=== PATIENT | male | born 1995 | race American Indian/Alaskan Native ===

== ENCOUNTER 2017-03-09 12:07 | Emergency (ER) | payer SELFPAY ==
--- NOTE | 2017-03-09 14:55 | Emergency Department Report ---
HPI - General Chief Complaint: Weakness Time Seen by Provider: 03/09/17 14:26 - HPI HPI: This is a 21-year-old male presents to ED complaining of loss of appetite 2 weeks. Patient states he chews like his immune system is a bit weak and wants to be screened. Patient states he only eats about 1 meal a day. Patient also states sometimes he feels like he is losing weight. Patient denies any medical history or surgical history. Patient denies feeling depressed. She did mention that his mother passed in October of this year. States he was doing fine and is coping well and does not think that's why he has a loss of appetite. Patient denies fevers/chills/nausea/vomiting/abdominal pain/chest pain/ diarrhea or constipation/dizziness/headache or blurry vision. ED Past Medical Hx - Past Medical History Previous Medical History?: No - Surgical History Past Surgical History?: No - Social History Smoking Status: Current Every Day Smoker Substance Use Type: Alcohol - Medications Home Medications: Home Medications Medication Instructions Recorded Confirmed Last Taken Type HYDROcodone/APAP 5-325 [[place] 1 each PO Q8HR PRN #20 tablet 01/24/15 Unknown Rx 5/325] Ciprofloxacin HCl [Ciprofloxacin 500 mg PO Q12HR #20 tab 05/20/15 Unknown Rx TAB] Diclofenac Dr [June Andino] 75 mg PO Q12H #20 tablet 05/20/15 Unknown Rx HYDROcodone/APAP 10-325 [[place] 1 each PO Q4-6H PRN #20 tablet 05/20/15 Unknown Rx 10/325] metroNIDAZOLE [Flagyl TAB] 500 mg PO Q8HR #21 tablet 05/20/15 Unknown Rx Naproxen [Naprosyn TAB] 500 mg PO BID PRN #30 tablet 03/09/17 Unknown Rx Pedi Multivit #22/Vit D3/Vit K 1 each PO DAILY #40 tab.chew 03/09/17 Unknown Rx [Multivitamins Chewable Tablet] ED Review of Systems ROS: Stated complaint: CHEST PAINS Other details as noted in HPI Constitutional: denies: chills, fever Eyes: denies: eye pain, eye discharge, vision change ENT: denies: ear pain, throat pain Respiratory: denies: cough, shortness of breath, wheezing Cardiovascular: denies: chest pain, palpitations Endocrine: no symptoms reported Gastrointestinal: denies: abdominal pain, nausea, diarrhea Genitourinary: denies: urgency, dysuria Musculoskeletal: denies: back pain, joint swelling, arthralgia Skin: denies: rash, lesions Neurological: denies: headache, weakness, paresthesias Psychiatric: denies: anxiety, depression Hematological/Lymphatic: denies: easy bleeding, easy bruising Physical Exam - Physical Exam Vital Signs: Vital Signs 03/09/17 12:54 Temperature 98.4 F Pulse Rate 59 L Respiratory 18 Rate Blood Pressure 132/67 O2 Sat by Pulse 100 Oximetry Physical Exam: GENERAL: Alert and oriented x3, no apparent distress, Normal Gait, atraumatic. HEAD: Head is normocephalic and a-traumatic. EYES: Extra ocular muscles are intact. Pupils are equal, round, and reactive to light and accommodation. NOSE: Nose symetrical, Nontender,Nares appeared normal. MOUTH:Mouth is well hydrated and without lesions. Tonsils nonerythematous or swollen, Uvula midline, Tongue not elevated. Mucous membranes are moist. Posterior pharynx clear, no exudate or lesions. Patent airways. NECK: Supple. Non edematous, No carotid bruits. No lymphadenopathy or thyromegaly. LUNGS: Symetrical with respiration, No wheezing, no rales or crackles, CTAB. HEART: S1, S2 present, regular rate and rhythm without murmur, no rubs, no gallops. ABDOMEN: No organomegaly was noted,Positive bowel sounds, soft, and non- distended. . Nontender to palpation on all Quadrants, NO CVA tenderness. EXTREMITIES/MUSCULOSKELETAL: No cyanosis, clubbing, rash, lesions or edema. Full ROM bilaterally. UE/LE Pulses 2+ bilaterally SKIN: Warm and dry, No lesions, No ulceration or induration present. ED Course Vital Signs 03/09/17 12:54 Temperature 98.4 F Pulse Rate 59 L Respiratory 18 Rate Blood Pressure 132/67 O2 Sat by Pulse 100 Oximetry ED Medical Decision Making - Lab Data Result diagrams: 03/09/17 15:09 03/09/17 15:09 - Medical Decision Making 21-year-old male presents with loss of appetite ED course: CBC, CMP, urinalysis ordered. He received, CMP, urinalysis all normal. Discussed findings with patient. Discussed the patient importance of following up with a primary care physician for health management. Discussed the patient his need for primary care and will be given referrals to see her primary care. Vital signs are normal. he is in no acute or respiratory distress. He denies any suicidal or homicidal ideation. He is alert and oriented 3 he states understanding instructions given and states he will follow-up. Critical care attestation.: If time is entered above; I have spent that time in minutes in the direct care of this critically ill patient, excluding procedure time. ED Disposition Clinical Impression: Loss of appetite Disposition: DISCHARGED TO HOME OR SELFCARE Is pt being admited?: No Does the pt Need Aspirin: No Condition: Stable Instructions: Multivitamins, Adult Formula (By mouth), High Fiber Diet (ED), Weight Management (ED), Regular Diet (ED) Additional Instructions: Follow-up with their primary care physician is referred His symptoms worsen or new symptoms arise return to ED. Taking multivitamins daily. Following instructions given on healthy diet Prescriptions: Naproxen [Naprosyn TAB] 500 mg PO BID PRN #30 tablet PRN Reason: Pain Pedi Multivit #22/Vit D3/Vit K [Multivitamins Chewable Tablet] 1 each PO DAILY # 40 tab.chew Referrals: PRIMARY CARE, [Primary Care Provider] - 3-5 Days CRISTIAN BURCIAGA MD [Referring] - 3-5 Days NED ARZOLA MD [Referring] - 3-5 Days [facility] [Outside] - 3-5 Days [facility] [Outside] - 3-5 Days [facility] [Outside] - 3-5 Days Forms: Work/School Release Form(ED) Time of Disposition: 17:08
[2017-03-09 15:28] LABS: Basophils % (Auto) 0.8 % (0.0-1.8); Eosinophils % (Auto) 0.9 % (0.0-4.3); Hematocrit 45.5 % (35.5-45.6); Hemoglobin 15.1 gm/dl (11.8-15.2); Mean Corpuscular HGB Conc 33 % (32-34); Mean Corpuscular Hemoglobin 30 pg (28-32); Mean Corpuscular Volume 89 fl (84-94); Platelet Count 189 K/mm3 (140-440); Red Cell Distribution Width 14.1 % (13.2-15.2); White Blood Count 4.6 K/mm3 (4.5-11.0)
[2017-03-09 15:47] LABS: Alanine Aminotransferase 11 units/L (7-56); Albumin/Globulin Ratio 1.8 %; Alkaline Phosphatase 77 units/L (35-129); Anion Gap 19 mmol/L; Blood Urea Nitrogen 12 mg/dL (9-20); Calcium 9.7 mg/dL (8.4-10.2); Carbon Dioxide 27 mmol/L (22-30); Chloride 101.4 mmol/L (98-107); Glucose 79 mg/dL (75-100); Potassium 4.3 mmol/L (3.6-5.0); Sodium 143 mmol/L (137-145); Total Protein 7.8 g/dL (6.3-8.2)
[2017-03-09 16:34] LABS: Bilirubin,Urine NEG (Negative); Blood,Urine NEG (Negative); Ketones,Urine NEG (Negative); Leukocyte Esterase,Urine NEG (Negative); Mucus,Urine FEW /HPF; Nitrite,Urine NEG (Negative); Protein,Urine <15 mg/dL mg/dL (Negative); Urobilinogen,Urine < 2.0 mg/dL (<2.0); WBC,Urine < 1.0 /HPF (0.0-6.0)
[2017-03-09 17:27] VITALS: BP 123/73
== END 2017-03-09 17:23 | disposition home or self-care (01) ==
LOC: ED 12:07
DX: R63.0 Anorexia (principal); F17.200 Nicotine dependence, unspecified, uncomplicated
CPT/HCPCS: 36415; 80053; 81001; 85025; 99283